=== PATIENT | female | born 1950 | race Caucasian/White ===

== ENCOUNTER 2017-03-10 11:44 | Emergency (ER) | payer OTHER ==
[2017-03-10] MEDS ORDERED: LET GEL TOPICAL 1 EA SYR TP ONE (11:57)
[2017-03-10 11:59] VITALS: BP 173/96; PULSE 92; RESP 18; TEMP 97.9; O2SAT 96
--- NOTE | 2017-03-10 12:33 | EDPHY ---
H & P Time Seen by Provider: 03/10/17 11:53 HPI/ROS: 66-year-old female presents complaining of laceration to the distal tip of her right thumb while preparing Thanksgiving dinner. Review of systems As per HPI General no fever no chills no weakness HEENT no eye pain no eye discharge. No eye redness, no sore throat Respiratory no cough, no shortness of breath Cardiac no chest pain, no peripheral edema GI no abdominal pain, no diarrhea, no constipation, no nausea, no vomiting no flank pain, no hematuria, no dysuria Musculoskeletal no myalgias, no joint pain Heme no easy bruising, no easy bleeding Endo no polyuria, no polydipsia Skin no rashes, no pruritus Neuro no syncope, no dizziness, no headaches Psych is no suicidal ideation, no homicidal ideation Past Medical/Surgical History: Hypothyroidism Social History: Denies alcohol or drug use Smoking Status: Former smoker Physical Exam: 66-year-old female Alert and oriented in no acute distress nontoxic appearance, afebrile Atraumatic normocephalic Neck no JVD Lungs clear to auscultation, no respiratory distress Heart regular rate and rhythm Extremities no cyanosis clubbing edema Right hand-right thumb-small avulsion, 2 mm oval shaped avulsion tangential to finger pad, at distal aspect of right thumb tip Bleeding controlled, full range of motion Good Capillary refill Constitutional: Initial Vital Signs Temperature (C) 36.6 C 03/10/17 11:57 Heart Rate 92 03/10/17 11:57 Respiratory Rate 18 03/10/17 11:57 Blood Pressure 173/96 H 03/10/17 11:57 O2 Sat (%) 96 03/10/17 11:57 O2 Delivery Mode Room Air Allergies/Adverse Reactions: No Known Allergies Allergy (Unverified 03/10/17 11:57) Home Medications: Medication Instructions Recorded Citalopram Hydrobromide [celeXA 10 03/10/17 MG] LEVOTHYROXINE SODIUM [Tirosint 03/10/17 50mcg] traZODone [traZODONE 100MG (*)] 03/10/17 Medical Decision Making ED Course/Re-evaluation: Patient seen and evaluated for distal thumb tip avulsion Wound cleanse, bleeding controlled and then wound bandaged Patient given education on care for finger tip avulsion. Differential Diagnosis: Finger tip avulsion, laceration, crush injury - Data Points Medications Given: Discontinued Medications Tetracaine/Epinephrine/Lidocaine (Let Gel Topical) 1 ea TP EDNOW ONE Stop: 03/10/17 11:58 Last Admin: 03/10/17 12:01 Dose: 1 ea Departure - Departure Disposition: Home, Routine, Self-Care Clinical Impression: Avulsion of fingertip Condition: Good Instructions: Skin Avulsion (ED) Referrals: NIKOLE,UNKNOWN [Other] - As per Instructions
== END 2017-03-10 12:49 | disposition home or self-care (01) ==
LOC: CED 11:44
DX: S61.001A Unspecified open wound of right thumb without damage to nail, initial encounter (principal); Z87.891 Personal history of nicotine dependence; W26.8XXA Contact with other sharp object(s), not elsewhere classified, initial encounter